=== PATIENT | male | born 1945 | race Caucasian/White ===

== ENCOUNTER 2024-03-19 10:29 | Emergency (ER) | payer OTHER, MEDICARE, MEDICAID, SELFPAY ==
[2024-03-19 10:30] VITALS: BP 189/96; PULSE 80; RESP 18; O2SAT 96; BMI 18.8
--- NOTE | 2024-03-19 10:41 | XRR_ITS ---
PROCEDURE INFORMATION: Exam: XR Chest Exam date and time: 03/19/2024 11:09 AM Age: 78 years old Clinical indication: Cough and dyspnea; Prior surgery; Surgery date: 6+ months; Surgery type: Pacer; Additional info: Dyspnea/cough TECHNIQUE: Imaging protocol: Radiologic exam of the chest. Views: 1 view. COMPARISON: No relevant prior studies available. FINDINGS: Tubes, catheters and devices: Cardiac pacemaker on the left with leads in satisfactory position. Lungs: Unremarkable. No consolidation or mass. Pleural spaces: Unremarkable. No pleural effusion. No pneumothorax. Heart/Mediastinum: Unremarkable. No cardiomegaly. Bones/joints: Unremarkable. XR/XR chest 1V portable [id number] IMPRESSION: No acute findings.
--- NOTE | 2024-03-19 10:46 | PC.PHAR ---
im kind of at a loss with this one, patient states he really doesn't know what he takes or anything at all, says talk to his but he cant tell me her name or anything..no contact info for anyone in the chart to call. no pharmacy info. no insurance info to call them to see where stuff gets filled. will keep trying all avenues though
--- NOTE | 2024-03-19 10:47 | ECG_ITS ---
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 Measurements Intervals [place] Rate: 72 P: -21 TN: 259 QRS: 30 QRSD: 104 T: 42 QT: 424 QTc: 465 Interpretive Statements SINUS RHYTHM WITH FIRST DEGREE AV BLOCK NONSPECIFIC T-WAVE ABNORMALITY No previous ECG available for comparison Electronically Signed On 03-19-2024 12:20:19 BUNCHER OPERATOR by Cesar Ceja M.D. [id number]
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
[2024-03-19 11:11] LABS: Basophils % 0.4 %; Eosinophils # 0.3 10^3/uL (0.0-0.8); Eosinophils % 3.4 %; Hematocrit 44.1 % (37-53); Lymphocytes # 1.8 10^3/uL (0.8-4.8); Lymphocytes % 23.5 %; Mean Corpuscular HGB Conc 32.4 g/dL (30-55); Mean Corpuscular Hemoglobin 30.9 pg (27-33); Mean Corpuscular Volume 95.2 fl (82-101); Mean Platelet Volume 9.5 fL (7.4-10.4); Monocytes # 0.5 10^3/uL (0.2-0.9); Monocytes % 6.2 %; Neutrophils # 4.99 10^3/uL (1.8-7.7); Neutrophils % 66.2 %; Nucleated Red Blood Cells % 0 %; Platelet Count 181 10^3/cmm (157-399); Red Blood Count 4.63 10^6/uL (3.85-5.65); Red Cell Distribution Width 14.3 % (12.1-15.1); White Blood Count 7.54 10^3/uL (3.29-11.43)
[2024-03-19 11:33] LABS: Alanine Aminotransferase 15 U/L (0-41); Albumin Level 4.1 g/dL (3.5-5.2); Alkaline Phosphatase 83 U/L (40-130); Anion Gap 13.3 (5-19); Aspartate Amino Transferase 23 U/L (0-40); Blood Urea Nitrogen 18 mg/dL (8-23); Calcium 9.3 mg/dL (8.5-10.5); Carbon Dioxide 29 mmol/L (22-29); Chloride 101 mmol/L (98-107); Creatine Phosphokinase 73 U/L (39-308); Creatinine Clr Calc Pharmacy 59.5339; Globulin 3.2 g/dL (1.3-4.6); Glucose 68 mg/dL (65-115); Osmolality Calculated 288 mOsm/kg (285-295); Potassium 4.3 mmol/L (3.5-5.1); Sodium 139 mmol/L (136-145); Total Bilirubin 1.1 mg/dL (0.15-1.2); Total Protein 7.3 g/dL (6.6-8.7); Troponin(5th) Baseline 13 ng/L (0-15)
[2024-03-19 11:39] LABS: Bilirubin Urine Negative (Negative); Blood Urine Negative (Negative); Glucose Urine UA Negative (Normal); Ketones Urine Trace (Negative); Leukocyte Esterase Urine Negative (Negative); Nitrate Urine Negative (Negative); Protein Urine Negative (Negative); Specific Gravity, Urine 1.009 (1.005-1.030); Urine Appearance Clear (CLEAR); Urine Color Yellow (Yellow); pH Urine 6.5 (5-7)
[2024-03-19 11:44] LABS: Add Urine Microscopic? YES; Bacteria Urine None Seen /hpf; Hyaline Casts Urine 0-4 /lpf; RBC Urine 0-2 /hpf (0-2); Squamous Epithelial Cell Urine 0-5 /hpf (0-5); WBC Urine 0-5 /hpf (0-5)
--- NOTE | 2024-03-19 11:47 | CT_ITS ---
WS: [id number] CT HEAD TECHNIQUE: Noncontrast CT of the head obtained from the skullbase to the vertex. CLINICAL INFORMATION: AMS COMPARISON: None. DLP: 844.[address] scans at [facility] use at least one of these dose optimization techniques: automated e xposure control; mA and/or kV adjustment per patient size (includes targeted exams where dose is matc hed to clinical indication); or iterative reconstruction. FINDINGS: No evidence of intracranial hemorrhage or mass effect. Ventricular system and basal cisterns are dutta nt. Mild small vessel changes with mild parenchymal volume loss. Tiny chronic lacunar infarct RIGHT p ons. Vascular calcification. Mild mucosal thickening in the ethmoid air cells. Mastoid air cells are well aerated. Vascular calcif ication. CT/CT head wo con* [id number] IMPRESSION: 1. No evidence of intracranial hemorrhage or mass effect. 2. Mild small vessel changes with mild parenchymal volume loss. 3. No acute intracranial findings.
[2024-03-19 12:14] LABS: Covid PCR NEGATIVE (Negative); Influenza A NEGATIVE (Negative); Influenza B NEGATIVE (Negative); Respiratory Syncytial Virus Ce NEGATIVE (Negative)
[2024-03-19 12:36] LABS: Acetaminophen < 5.0 ug/mL (10-30); Alcohol Level < 10 mg/dL (0-10); Salicylate < 0.3 mg/dL (3-10)
--- NOTE | 2024-03-19 12:41 | ECG_ITS ---
[facility] Test Date: 2024-03-19 Pat Name: Pee Cuevas Department: Room: Gender: Male Assistant: : 1945 Requested By: Octavio Loaiza Order Number: [id number] Stephan MD: Cesar Ceja M.D. Measurements Intervals [place] Rate: 68 P: -47 [place]: 205 QRS: 24 QRSD: 93 T: 6 QT: 322 QTc: 343 Interpretive Statements ECTOPIC ATRIAL RHYTHM NONSPECIFIC T-WAVE ABNORMALITY Compared to ECG 03/19/2024 10:47:15 Ectopic atrial rhythm now present Sinus rhythm no longer present First degree AV block no longer present T-wave abnormality still present Electronically Signed On 03-19-2024 16:10:15 STAND IN by Cesar Ceja M.D. [id number]
[2024-03-19 13:00] VITALS: PULSE 77; O2SAT 98
[2024-03-19 13:31] LABS: Troponin 5 2HR 14.31 ng/L (0-15); Troponin 5 2HR Delta 1.31 ABS# (0-10)
[2024-03-19 13:32] VITALS: BP 136/71; PULSE 77; O2SAT 97
--- NOTE | 2024-03-19 13:35 | ECG_ITS ---
[facility] Test Date: 2024-03-19 Pat Name: Pee Cuevas Department: Room: Gender: Male Manager Foreign: : 1945 Requested By: Octavio Loaiza Order Number: [id number] Stephan MD: Cesar Ceja M.D. Measurements Intervals [place] Rate: 78 P: 60 MD: 322 QRS: 25 QRSD: 113 T: -28 QT: 353 QTc: 404 Interpretive Statements ELECTRONIC ATRIAL PACEMAKER MODERATE INTRAVENTRICULAR CONDUCTION DELAY [110+ ms QRS DURATION] NONSPECIFIC T-WAVE ABNORMALITY Compared to ECG 03/19/2024 12:36:32 Intraventricular conduction delay now present Ectopic atrial rhythm no longer present T-wave abnormality still present Electronically Signed On 03-19-2024 16:09:03 NUTRITION MANAGER by Cesar Ceja M.D. [id number]
[2024-03-19 15:16] VITALS: BP 132/69; PULSE 77; O2SAT 96
== END 2024-03-19 15:39 | disposition home or self-care (01) ==
PROVIDERS: Emergency Provider Family Medicine; Family Provider Family Medicine
DX: R41.81 Age-related cognitive decline (principal); Z11.52 Encounter for screening for COVID-19; Z79.01 Long term (current) use of anticoagulants; E11.9 Type 2 diabetes mellitus without complications; I10 Essential (primary) hypertension
CPT/HCPCS: 36415; 70450; 71045; 80053; 80307; 81001; 82550; 84484; 85025; 87040; 87637; 93005; 93010; 99285

== ENCOUNTER 2024-04-12 11:00 | Emergency (ER) | payer MEDICARE, MEDICAID, SELFPAY ==
[2024-04-12] VITALS (13 sets, daily range): BP systolic 82–117; BP diastolic 38–59; PULSE 64–88; RESP 15–18; TEMP 36.7; O2SAT 94–100
--- NOTE | 2024-04-12 11:26 | XRR_ITS ---
PROCEDURE INFORMATION: Exam: XR Chest Exam date and time: 04/12/2024 11:33 AM Age: 78 years old Clinical indication: Other: Weakness; Prior surgery; Surgery date: 6+ months; Surgery type: Pacer TECHNIQUE: Imaging protocol: Radiologic exam of the chest. Views: 1 view. COMPARISON: CR XR chest 1V portable [id number] 03/19/2024 11:09 AM FINDINGS: Tubes, catheters and devices: Cardiac pacemaker/ICD is in place. Lungs: No significant active pulmonary pathology. Pleural spaces: No pleural effusion or pneumothorax. Heart/Mediastinum: Cardiomediastinal contours accentuated by low lung volumes and AP technique. Diaphragm: Mild left lateral CP angle blunting suggesting small effusion. No right effusion. Bones/joints: No significant pathology. XR/XR chest 1V portable [id number] IMPRESSION: Incomplete pulmonary expansion with no acute pulmonary pathology seen. Findings suggestive of small left effusion.
--- NOTE | 2024-04-12 11:27 | ECG_ITS ---
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
[2024-04-12 11:59] LABS: Eosinophils # 0.2 10^3/uL (0.0-0.8); Eosinophils % 4.1 %; Hematocrit 37.6 % (37-53); Lymphocytes # 0.6 10^3/uL (0.8-4.8); Lymphocytes % 13.8 %; Mean Corpuscular HGB Conc 32.2 g/dL (30-55); Mean Corpuscular Hemoglobin 30.9 pg (27-33); Mean Corpuscular Volume 95.9 fl (82-101); Mean Platelet Volume 9.3 fL (7.4-10.4); Monocytes # 0.2 10^3/uL (0.2-0.9); Monocytes % 5.6 %; Neutrophils # 3.16 10^3/uL (1.8-7.7); Neutrophils % 76.3 %; Nucleated Red Blood Cells % 0 %; Platelet Count 147 10^3/cmm (157-399); Red Blood Count 3.92 10^6/uL (3.85-5.65); Red Cell Distribution Width 15.3 % (12.1-15.1); White Blood Count 4.14 10^3/uL (3.29-11.43)
[2024-04-12] MEDS: sodium chloride 0.9% 1,000 ML 999 ML IV ×2 (12:07→14:16)
[2024-04-12 12:25] LABS: Alanine Aminotransferase 14 U/L (0-41); Albumin Level 3.1 g/dL (3.5-5.2); Alkaline Phosphatase 54 U/L (40-130); Aspartate Amino Transferase 20 U/L (0-40); Blood Urea Nitrogen 23 mg/dL (8-23); Calcium 8.1 mg/dL (8.5-10.5); Carbon Dioxide 26 mmol/L (22-29); Chloride 96 mmol/L (98-107); Globulin 2.1 g/dL (1.3-4.6); Glucose 80 mg/dL (65-115); Lipase 8 U/L (13-60); Magnesium 1.4 mg/dL (1.7-2.3); NT Pro B Type Natriuretic Pept 747 pg/mL (0-450); Osmolality Calculated 281 mOsm/kg (285-295); Sodium 134 mmol/L (136-145); Total Protein 5.2 g/dL (6.6-8.7)
[2024-04-12 12:26] LABS: Glucose Point of Care 82 mg/dL (70-110)
[2024-04-12 12:29] LABS: Add Urine Microscopic? NO
[2024-04-12 12:31] LABS: Bilirubin Urine Negative (Negative); Blood Urine Negative (Negative); Glucose Urine UA Negative (Normal); Ketones Urine Negative (Negative); Leukocyte Esterase Urine Trace (Negative); Nitrate Urine Negative (Negative); Protein Urine Trace (Negative); Specific Gravity, Urine 1.024 (1.005-1.030); Urine Appearance Clear (CLEAR); Urine Color Dark Yellow (Yellow); pH Urine 5.5 (5-7)
[2024-04-12 12:36] LABS: Bacteria Urine None Seen /hpf; Hyaline Casts Urine 5.36 /lpf; Squamous Epithelial Cell Urine 0-5 /hpf (0-5); WBC Urine 0-5 /hpf (0-5)
--- NOTE | 2024-04-12 12:37 | PC.PHAR ---
Addendum entered by Lexi Aragon 04/12/24 12:41: Pt is from [facility] Original Note: Pts' discharge med list from 03/19/24 shows pt still taking Sotalol 80mg 1/2 tablet bid and Losartan 25mg 1/2 tablet daily. Pts' nurse Patricia states they were both dc'd but could not give me a dc date. Removed from med list.
[2024-04-12 12:43] LABS: Covid PCR NEGATIVE (Negative); Influenza A NEGATIVE (Negative); Influenza B NEGATIVE (Negative); Respiratory Syncytial Virus Ce NEGATIVE (Negative)
[2024-04-12 12:47] LABS: UA Slide Review UA Slide Review Perf
[2024-04-12 12:48] LABS: Calcium Oxalate Crystals Urine 15-25 /hpf
[2024-04-12 12:49] LABS: Mucus Urine 1+ /hpf
[2024-04-12 12:52] LABS: Charge for UA Resulting for Rev
--- NOTE | 2024-04-12 13:00 | PC.NURSE ---
this nurse assumed pt care at 1300 from MARCELLUS Shay.
[2024-04-12 13:41] LABS: Reflex Lactate Order REFLEX LACTIC ORDERD
== END 2024-04-12 19:14 | disposition home or self-care (01) ==
PROVIDERS: Emergency Provider Emergency Medicine; Family Provider Family Medicine
DX: E86.0 Dehydration (principal); Z11.52 Encounter for screening for COVID-19; Z79.4 Long term (current) use of insulin; Z79.01 Long term (current) use of anticoagulants; E11.9 Type 2 diabetes mellitus without complications; I10 Essential (primary) hypertension
CPT/HCPCS: 12345; 36415; 36416; 71045; 80053; 81003; 82962; 83605; 83690; 83735; 83880; 85025; 87637; 93005; 96360; 96361; 99285; J7030